=== PATIENT | male | born 1940 | race Caucasian/White ===

== ENCOUNTER 2018-12-06 10:07 | Inpatient (IN) ==
[2018-12-06 11:21] LABS: Basophils % 0.5 % (0.0-0.8); Eosinophils # 0.1 10*3/uL (0.0-0.87); Eosinophils % 1.4 % (0.00-10.9); Hematocrit 41.1 VOL% (42.0-52.0); Hemoglobin 13.7 GM/DL (14.0-18.0); Immature Granulocytes % 0.9 %; Immature Granulocytes Absolute 0.06 #; Lymphocytes # 1.8 10*3/uL (1.4-4.0); Lymphocytes % 26.9 % (21.2-54.2); Mean Corpuscular HGB Conc 33.3 GM/DL (32-36); Mean Corpuscular Volume 89.2 FL (87-102); Mean Platelet Volume 10.1 FL (9.6-12.0); Monocytes % 7.4 % (1.7-12.7); Neutrophils % 62.9 % (38.7-73.9); Platelet Count 197 T/CUMM (130-400); Red Blood Count 4.61 MC/CUMM (3.8-5.5); Red Cell Distribution Width 12.4 % (9.3-17.3); White Blood Count 6.6 T/CUMM (4-12)
[2018-12-06] MEDS ORDERED: ONDANSETRON 4 MG/2 ML VIAL IV PRN (11:31)
[2018-12-06] MEDS ORDERED: ACETAMINOPHEN 325 MG TABLET PO PRN (11:31)
[2018-12-06 11:40] LABS: Albumin 3.5 G/DL (3.4-5.0); Bilirubin,Total 0.6 MG/DL (0.2-1.0); Calcium 8.8 MG/DL (8.5-10.1); Osmolality,Calculated 287.1 MOS/KG (273-304); Total Protein 6.6 G/DL (6.4-8.3)
[2018-12-06] MEDS ORDERED: ceFAZolin 1,000 MG in SYRINGE 1 EACH IV ONE (12:12)
[2018-12-06] MEDS ORDERED: ceFAZolin 1,000 MG VIAL IRRIG ONE (12:12)
[2018-12-06] MEDS ORDERED: diphenhydrAMINE CAP 25 MG CAPSULE PO ONE (12:12)
[2018-12-06] MEDS ORDERED: DIAZEPAM 5 MG TABLET PO ONE (12:12)
[2018-12-06] MEDS ORDERED: TISSUE ADHESIVE 1 EACH APPLICATOR TOP ONE (12:32)
[2018-12-06] MEDS ORDERED: LIDOCAINE 1%/EPI INJ 20 ML VIAL ONE (12:32)
[2018-12-06] MEDS ORDERED: ceFAZolin 1,000 MG VIAL ONE (12:32)
[2018-12-06] MEDS ORDERED: HYDROmorphone 2 MG/1 ML VIAL ONE (12:45)
[2018-12-06] MEDS ORDERED: MIDAZOLAM 2 MG/2 ML VIAL ONE (12:46)
[2018-12-06] MEDS: SODIUM CHLORIDE 0.9% 1,000 ML IV SCH (14:45)
[2018-12-06] MEDS: traMADol 50 MG TABLET PO SCH ×2 (16:25→20:32)
[2018-12-06] MEDS: MELOXICAM 7.5 MG TABLET PO SCH (20:33)
[2018-12-06] MEDS: DOCUSATE SODIUM 100 MG CAPSULE PO SCH (20:33)
[2018-12-06] MEDS ORDERED: LOVASTATIN 60 MG PO SCH (21:00)
[2018-12-07 05:40] LABS: Basophils % 0.5 % (0.0-0.8); Eosinophils # 0.1 10*3/uL (0.0-0.87); Eosinophils % 1.3 % (0.00-10.9); Hematocrit 40.1 VOL% (42.0-52.0); Hemoglobin 13.3 GM/DL (14.0-18.0); Immature Granulocytes % 0.8 %; Immature Granulocytes Absolute 0.06 #; Lymphocytes % 25.5 % (21.2-54.2); Mean Corpuscular HGB Conc 33.2 GM/DL (32-36); Mean Corpuscular Volume 89.5 FL (87-102); Mean Platelet Volume 10.3 FL (9.6-12.0); Monocytes % 8.2 % (1.7-12.7); Neutrophils % 63.7 % (38.7-73.9); Platelet Count 175 T/CUMM (130-400); Red Blood Count 4.48 MC/CUMM (3.8-5.5); Red Cell Distribution Width 12.5 % (9.3-17.3)
[2018-12-07 06:03] LABS: Calcium 8.6 MG/DL (8.5-10.1); Osmolality,Calculated 282.3 MOS/KG (273-304)
[2018-12-07] MEDS: amLODIPine 10 MG TABLET PO SCH (09:57)
[2018-12-07] MEDS: hydroCHLOROthiazide 25 MG TABLET PO SCH (09:57)
[2018-12-07] MEDS: ASPIRIN EC 81 MG TABLET PO SCH (09:57)
[2018-12-07] MEDS: PANTOPRAZOLE 40 MG TABLET PO SCH (09:57)
[2018-12-07] MEDS: DOCUSATE SODIUM 100 MG CAPSULE PO SCH ×2 (09:57→21:41)
[2018-12-07] MEDS: traMADol 50 MG TABLET PO SCH ×3 (09:58→21:42)
[2018-12-07] MEDS: SODIUM CHLORIDE 0.9% 1,000 ML IV SCH (15:20)
[2018-12-07] MEDS: MELOXICAM 7.5 MG TABLET PO SCH (21:42)
[2018-12-08] MEDS: traMADol 50 MG TABLET PO SCH ×3 (09:18→21:26)
[2018-12-08] MEDS: amLODIPine 10 MG TABLET PO SCH (09:19)
[2018-12-08] MEDS: ASPIRIN EC 81 MG TABLET PO SCH (09:19)
[2018-12-08] MEDS: hydroCHLOROthiazide 25 MG TABLET PO SCH (09:19)
[2018-12-08] MEDS: DOCUSATE SODIUM 100 MG CAPSULE PO SCH ×2 (09:19→21:26)
[2018-12-08] MEDS: PANTOPRAZOLE 40 MG TABLET PO SCH (09:19)
[2018-12-08] MEDS: MELOXICAM 7.5 MG TABLET PO SCH (21:27)
[2018-12-08] MEDS: SODIUM CHLORIDE 0.9% 1,000 ML IV SCH (21:29)
[2018-12-09] MEDS: traMADol 50 MG TABLET PO SCH ×3 (08:51→20:26)
[2018-12-09] MEDS: amLODIPine 10 MG TABLET PO SCH (08:51)
[2018-12-09] MEDS: PANTOPRAZOLE 40 MG TABLET PO SCH (08:51)
[2018-12-09] MEDS: hydroCHLOROthiazide 25 MG TABLET PO SCH (08:51)
[2018-12-09] MEDS: ASPIRIN EC 81 MG TABLET PO SCH (08:51)
[2018-12-09] MEDS: DOCUSATE SODIUM 100 MG CAPSULE PO SCH ×2 (08:52→20:26)
[2018-12-09] MEDS: MELOXICAM 7.5 MG TABLET PO SCH (20:26)
[2018-12-10] MEDS: amLODIPine 10 MG TABLET PO SCH (09:34)
[2018-12-10] MEDS: traMADol 50 MG TABLET PO SCH (09:34)
[2018-12-10] MEDS: hydroCHLOROthiazide 25 MG TABLET PO SCH (09:34)
[2018-12-10] MEDS: ASPIRIN EC 81 MG TABLET PO SCH (09:34)
[2018-12-10] MEDS: DOCUSATE SODIUM 100 MG CAPSULE PO SCH (09:34)
[2018-12-10] MEDS: PANTOPRAZOLE 40 MG TABLET PO SCH (09:37)
[2018-12-10 13:20] VITALS: BP 163/71
== END 2018-12-10 11:19 | disposition swing bed (61) | DRG 244 ==
LOC: N.ED 10:07 → N.EDINP 11:31 → N.ICU 12:25 → N.TELES 13:34
PROVIDERS: ADMIT Internal Medicine; ATTEND Internal Medicine

== ENCOUNTER 2019-01-25 08:46 | Inpatient (IN) ==
[~2019-01-25 08:46] MED LIST: ASPIRIN 325 MG TABLET PO ONE; DIAZEPAM 5 MG TABLET PO ONE; MAGNESIUM SULF RIDER 2 GM in PREMIX 1 EACH IV PRN; POTASSIUM CHLORIDE RIDER 10 MEQ in PREMIX 1 EACH IV PRN; diphenhydrAMINE CAP 25 MG CAPSULE PO ONE
[2019-01-25] MEDS: SODIUM CHLORIDE 0.9% 1,000 ML IV SCH (09:25)
[2019-01-25 09:27] LABS: Basophils % 0.6 % (0.0-0.8); Eosinophils # 0.1 10*3/uL (0.0-0.87); Eosinophils % 1.1 % (0.00-10.9); Hematocrit 41.5 VOL% (42.0-52.0); Hemoglobin 14.3 GM/DL (14.0-18.0); Immature Granulocytes % 0.3 %; Immature Granulocytes Absolute 0.02 #; Lymphocytes # 1.6 10*3/uL (1.4-4.0); Lymphocytes % 25.4 % (21.2-54.2); Mean Corpuscular HGB Conc 34.5 GM/DL (32-36); Mean Corpuscular Volume 88.3 FL (87-102); Mean Platelet Volume 10.2 FL (9.6-12.0); Monocytes % 7.9 % (1.7-12.7); Neutrophils % 64.7 % (38.7-73.9); Platelet Count 184 T/CUMM (130-400); Red Cell Distribution Width 12.6 % (9.3-17.3); White Blood Count 6.3 T/CUMM (4-12)
[2019-01-25 09:34] LABS: PT Patient Result 10.7 SECS (9.6-12.2)
[2019-01-25 09:45] LABS: Albumin 3.8 G/DL (3.4-5.0); Bilirubin,Total 0.7 MG/DL (0.2-1.0); Calcium 9.1 MG/DL (8.5-10.1); Osmolality,Calculated 281.4 MOS/KG (273-304); Total Protein 7.5 G/DL (6.4-8.3)
[2019-01-25] MEDS ORDERED: LIDOCAINE 1% 20 ML VIAL ONE (10:17)
[2019-01-25] MEDS ORDERED: HEPARIN/NACL 0.9% 2 UNITS/ML 1,000 ML IV ONE (10:17)
[2019-01-25] MEDS ORDERED: ASPIRIN 325 MG TABLET ONE (10:52)
[2019-01-25] MEDS ORDERED: diphenhydrAMINE CAP 25 MG CAPSULE ONE (10:52)
[2019-01-25] MEDS ORDERED: DIAZEPAM 5 MG TABLET ONE (10:52)
[2019-01-25] MEDS ORDERED: HYDROmorphone 2 MG/1 ML VIAL ONE (12:09)
[2019-01-25] MEDS ORDERED: MIDAZOLAM 2 MG/2 ML VIAL ONE (12:09)
[2019-01-25] MEDS ORDERED: VERAPAMIL 5 MG/2 ML VIAL ONE (12:13)
[2019-01-25] MEDS ORDERED: NITROGLYCERIN DRIP 50 MG/250 ML BOTTLE IV ONE (12:13)
[2019-01-25] MEDS ORDERED: ENOXAPARIN 30 MG/0.3 ML SYRINGE ONE (12:26)
[2019-01-25] MEDS ORDERED: BIVALIRUDIN 250 MG VIAL IV ONE (12:41)
[2019-01-25] MEDS ORDERED: ACETAMINOPHEN/CODEINE 300-30 MG TABLET PO PRN (13:26)
[2019-01-25] MEDS ORDERED: ACETAMINOPHEN 325 MG TABLET PO PRN (13:26)
[2019-01-25] MEDS ORDERED: SODIUM CHLORIDE 0.9% 1,000 ML IV SCH ×2 (13:30→15:00)
[2019-01-25] MEDS ORDERED: CEFUROXIME INJ 1,500 MG in SYRINGE 1 EACH IV ONE (14:35)
[2019-01-25] MEDS ORDERED: GLUCAGON 1 MG VIAL IM PRN (14:35)
[2019-01-25] MEDS ORDERED: DEXTROSE 50% 25 GM/50 ML VIAL IV PRN (14:35)
[2019-01-25] MEDS ORDERED: PAPAVERINE 60 MG/2 ML VIAL ONE (14:58)
[2019-01-25] MEDS ORDERED: VANCOMYCIN 1,000 MG VIAL ONE (14:58)
[2019-01-25 16:05] LABS: ABG HCO3 24.7 MMOL/L (20-26); ABG PCO2 37.7 MM HG (35-48); Allen Test Positive; Pt O2 Delivery Device Room Air
[2019-01-25 16:06] LABS: ABG Base Excess 0.3 MMOL/L (-2.5-2.5); ABG Oxygen Saturation 97.4 % (95-100)
[2019-01-25] MEDS: CHLORHEXIDINE 4% SOLN 118 ML BOTTLE TOP SCH ×2 (18:18→20:48)
[2019-01-25] MEDS ORDERED: ZALEPLON 5 MG CAPSULE PO PRN (20:26)
[2019-01-25] MEDS: CHLORHEXIDINE 0.12% ORAL RINSE 60 ML BOTTLE SWISH/SPIT SCH (20:47)
[2019-01-26 05:00] LABS: Basophils % 0.4 % (0.0-0.8); Eosinophils # 0.1 10*3/uL (0.0-0.87); Eosinophils % 1.8 % (0.00-10.9); Hematocrit 38.2 VOL% (42.0-52.0); Hemoglobin 12.7 GM/DL (14.0-18.0); Immature Granulocytes % 0.4 %; Immature Granulocytes Absolute 0.03 #; Lymphocytes # 1.7 10*3/uL (1.4-4.0); Mean Corpuscular HGB Conc 33.2 GM/DL (32-36); Mean Corpuscular Volume 90.1 FL (87-102); Mean Platelet Volume 10.2 FL (9.6-12.0); Monocytes % 9.2 % (1.7-12.7); Neutrophils % 63.2 % (38.7-73.9); Platelet Count 164 T/CUMM (130-400); Red Blood Count 4.24 MC/CUMM (3.8-5.5); Red Cell Distribution Width 12.7 % (9.3-17.3); White Blood Count 6.8 T/CUMM (4-12)
[2019-01-26 05:26] LABS: Blood Urea Nitrogen 23 MG/DL (7-18); Calcium 8.5 MG/DL (8.5-10.1); Estimated Glom Filtration Rate 85 ML/MIN; Glucose 114 MG/DL (74-106); HDL Cholesterol 34 MG/DL (40-60); Osmolality,Calculated 285.3 MOS/KG (273-304); Risk Ratio 5.29; Triglycerides 293 MG/DL (2-150); VLDL CHOLESTEROL 58.6 MG/DL
[2019-01-26 05:29] LABS: Troponin I 0.623 NG/ML (0.00-0.045)
[2019-01-26] MEDS ORDERED: CEFUROXIME INJ 1,500 MG in SYRINGE 1 EACH IV ONE (05:30)
[2019-01-26] MEDS ORDERED: DIAZEPAM 5 MG TABLET PO ONE (06:00)
[2019-01-26] MEDS ORDERED: FAMOTIDINE 20 MG TABLET PO ONE (06:00)
[2019-01-26] MEDS ORDERED: MIDAZOLAM 10 MG/2 ML VIAL ONE (06:01)
[2019-01-26] MEDS ORDERED: SUFentanil 250 MCG/5 ML AMP ONE (06:01)
[2019-01-26] MEDS ORDERED: ePHEDrine 50 MG/ML AMP ONE (06:46)
[2019-01-26] MEDS: SODIUM CHLORIDE 0.9% 1,000 ML IV SCH (07:00)
[2019-01-26 07:41] LABS: ABG HCO3 23.6 MMOL/L (20-26); ABG Oxygen Saturation 99.8 % (95-100); ABG PCO2 38.3 MM HG (35-48); ABG PH 7.397 (7.35-7.45); ABG TCO2 20.6 MMOL/L (23-27); Glucose Heart Surgery 120 MG/DL (74-106); Ionized Calcium Arterial 1.18 MMOL/L (1.21-1.46); PCO2 Patient Temp Arterial 38.3 MMHG; PH Patient Temp Arterial 7.397; Patient Temperature 37 CELCIUS; Potassium Heart/CVR 3.8 MMOL/L (3.5-5.1); Sodium Heart/CVR 139 MMOL/L (135-145)
[2019-01-26 08:04] LABS: Apearance,Urine CLEAR (Clear); Bilirubin,Urine Negative (Negative); Blood, Urine Negative (Negative); Glucose,Urine (UA) Negative (Negative); Ketones,Urine Negative (Negative); Mucus,Urine Occasional /LPF (Occasional); Nitrite,Urine Negative (Negative); Protein,Urine Negative; RBC,Urine 1 /HPF (0-4); Urine Color Straw (Yellow); Urine Urobilinogen < 2.0 EU/DL (0.2-1.0)
[2019-01-26] MEDS ORDERED: PHENYLEPHRINE DRIP 40 MG/250 ML PREMIX IV ONE (08:12)
[2019-01-26] MEDS ORDERED: SODIUM BICARBONATE 50 MEQ/50 ML VIAL IV ONE ×2 (08:12→09:49)
[2019-01-26] MEDS ORDERED: NITROPRUSSIDE 50 MG/2 ML VIAL ONE (08:12)
[2019-01-26] MEDS ORDERED: CALCIUM CHLORIDE 1,000 MG/10 ML SYRINGE IV ONE (08:13)
[2019-01-26] MEDS ORDERED: POTASSIUM CHLORIDE RIDER 100 ML IV ONE (08:13)
[2019-01-26] MEDS ORDERED: NITROGLYCERIN DRIP 50 MG/250 ML BOTTLE IV ONE (08:54)
[2019-01-26] MEDS ORDERED: HEPARIN/NACL 0.9% 2 UNITS/ML 500 ML IV ONE (08:54)
[2019-01-26] MEDS ORDERED: AMINOCAPROIC ACID 5,000 MG/20 ML VIAL ONE (08:54)
[2019-01-26] MEDS ORDERED: PHENYLEPHRINE DRIP 20 MG/250 ML PREMIX IV ONE (08:54)
[2019-01-26] MEDS ORDERED: CALCIUM CHLORIDE 1,000 MG/10 ML VIAL IV ONE (08:54)
[2019-01-26] MEDS ORDERED: ASPIRIN EC 81 MG TABLET PO SCH (09:00)
[2019-01-26] MEDS: CHLORHEXIDINE 0.12% ORAL RINSE 60 ML BOTTLE SWISH/SPIT SCH ×2 (09:00→20:55)
[2019-01-26 09:02] LABS: Hematocrit Heart Surgery 28.9 PERCENT (42-52); Hemoglobin Heart Surgery 9.3 G/DL (14.0-18.0); PCO2 Patient Temp Venous 39.6 MM HG; PH Patient Temp Venous 7.39; PO2 Patient Temp Venous 39.3 MM HG; Potassium Heart/CVR 4.2 MMOL/L (3.5-5.1); VBG Base Excess -0.8 MEQ/L (0-4); VBG HCO3 23.4 MEQ/L (24-28); VBG Oxygen Saturation 79.1 %; VBG PCO2 41.5 MMHG (41-51); VBG PH 7.376; VBG PO2 42.2 MMHG (17-40)
[2019-01-26] MEDS ORDERED: PHENYLEPHRINE 1 MG/10 ML SYRINGE IV ONE (09:03)
[2019-01-26 09:43] LABS: ABG Base Excess -1.9 MMOL/L (-2.5-2.5); ABG HCO3 22.9 MMOL/L (20-26); ABG Oxygen Saturation 99.7 % (95-100); ABG PCO2 41.7 MM HG (35-48); ABG PH 7.359 (7.35-7.45); ABG TCO2 21.3 MMOL/L (23-27); Glucose Heart Surgery 196 MG/DL (74-106); Hematocrit Heart Surgery 32.9 PERCENT (42-52); Hemoglobin Heart Surgery 10.6 G/DL (14.0-18.0); Ionized Calcium Arterial 1.26 MMOL/L (1.21-1.46); PCO2 Patient Temp Arterial 41.7 MMHG; PH Patient Temp Arterial 7.359; Patient Temperature 37 CELCIUS; Potassium Heart/CVR 3.9 MMOL/L (3.5-5.1); Sodium Heart/CVR 134 MMOL/L (135-145)
[2019-01-26] MEDS ORDERED: ALBUMIN 25% 25 GM/100 ML VIAL IV ONE (09:49)
[2019-01-26] MEDS ORDERED: PROTAMINE SULFATE 250 MG/25 ML VIAL IV ONE (09:49)
[2019-01-26] MEDS ORDERED: MANNITOL 100 GM/500 ML BAG IV ONE (09:49)
[2019-01-26] MEDS ORDERED: DEXTROSE 5% KCL 20 MEQ 20 MEQ/1,000 ML BAG IV ONE (09:49)
[2019-01-26] MEDS ORDERED: MAGNESIUM SULFATE 5 GM/10 ML VIAL IV ONE (09:49)
[2019-01-26] MEDS ORDERED: LIDOCAINE 100 MG/5 ML SYRINGE ONE (09:49)
[2019-01-26] MEDS ORDERED: HEPARIN 10,000 UNIT/10 ML VIAL ONE (09:50)
[2019-01-26] MEDS ORDERED: PROTAMINE SULFATE 50 MG/5 ML VIAL IV ONE (09:50)
[2019-01-26] MEDS ORDERED: methylPREDNISolone SOD SUC 1,000 MG/8 ML VIAL ONE (09:50)
[2019-01-26] MEDS ORDERED: FUROSEMIDE 20 MG/2 ML VIAL ONE (09:50)
[2019-01-26] MEDS ORDERED: SEVOFLURANE 1 UNIT/15 MINUTE INH ONE (10:34)
[2019-01-26] MEDS ORDERED: SODIUM CHLORIDE 0.9% 250 ML IV ONE (10:34)
[2019-01-26] MEDS ORDERED: SODIUM CHLORIDE 0.9% 100 ML IV ONE (10:34)
[2019-01-26] MEDS ORDERED: LIDOCAINE 1% 5 ML VIAL ONE (10:34)
[2019-01-26] MEDS ORDERED: MINERAL OIL/PETROLATUM OPH OINT 3.5 GM TUBE ONE (10:34)
[2019-01-26] MEDS ORDERED: VECURONIUM 10 MG VIAL IV ONE (10:34)
[2019-01-26] MEDS ORDERED: SODIUM CHLORIDE 0.9% 1,000 ML IV ONE (10:34)
[2019-01-26] MEDS ORDERED: ETOMIDATE 40 MG/20 ML VIAL IV ONE (10:34)
[2019-01-26] MEDS ORDERED: LACTATED RINGERS 1,000 ML IV ONE (10:34)
[2019-01-26] MEDS ORDERED: MAGNESIUM SULF RIDER 4 GM in PREMIX 1 EACH IV PRN (10:39)
[2019-01-26] MEDS ORDERED: POTASSIUM CHLORIDE RIDER 10 MEQ in PREMIX 1 EACH IV PRN (10:39)
[2019-01-26] MEDS ORDERED: MIDAZOLAM 10 MG/2 ML VIAL IV PRN (10:39)
[2019-01-26] MEDS ORDERED: INSULIN REGULAR 100 UNIT/ML IV PRN (10:39)
[2019-01-26] MEDS ORDERED: MIDAZOLAM 2 MG/2 ML VIAL IV PRN (10:39)
[2019-01-26] MEDS ORDERED: PHENYLEPHRINE DRIP 40 MG/250 ML PREMIX IV PRN (10:39)
[2019-01-26] MEDS ORDERED: INSULIN REGULAR DRIP 100 ML IV SCH (10:39)
[2019-01-26] MEDS ORDERED: VECURONIUM 10 MG VIAL IV PRN ×2 (10:39)
[2019-01-26] MEDS ORDERED: ACETAMINOPHEN 650 MG SUPP RECTAL PRN (10:39)
[2019-01-26] MEDS ORDERED: CALCIUM CHLORIDE 1,000 MG/10 ML SYRINGE IV PRN (10:39)
[2019-01-26] MEDS ORDERED: SODIUM CHLORIDE 0.45% 1,000 ML IV SCH ×2 (10:39)
[2019-01-26] MEDS ORDERED: ONDANSETRON 4 MG/2 ML VIAL IV PRN (10:39)
[2019-01-26] MEDS ORDERED: MAGNESIUM SULF RIDER 2 GM in PREMIX 1 EACH IV PRN (10:39)
[2019-01-26] MEDS ORDERED: NITROPRUSSIDE 100 MG in DEXTROSE 5% 250 ML IV PRN (10:39)
[2019-01-26] MEDS ORDERED: DEXTROSE 50% 25 GM/50 ML VIAL IV PRN ×2 (10:39)
[2019-01-26] MEDS ORDERED: INSULIN REGULAR 100 UNIT/ML IV ONE (10:39)
[2019-01-26 10:43] LABS: ABG Base Excess -2.1 MMOL/L (-2.5-2.5); ABG HCO3 22.7 MMOL/L (20-26); ABG Oxygen Saturation 99.3 % (95-100); ABG PCO2 41.6 MM HG (35-48); ABG PH 7.356 (7.35-7.45); ABG TCO2 20.8 MMOL/L (23-27); Glucose Heart Surgery 168 MG/DL (74-106); Hematocrit Heart Surgery 35.7 PERCENT (42-52); Hemoglobin Heart Surgery 11.6 G/DL (14.0-18.0); Potassium Heart/CVR 3.7 MMOL/L (3.5-5.1)
[2019-01-26] MEDS: POTASSIUM CHLORIDE RIDER 20 MEQ in PREMIX 1 EACH IV PRN ×8 (10:45→21:11)
[2019-01-26 10:47] LABS: Basophils % 0.4 % (0.0-0.8); Eosinophils # 0.1 10*3/uL (0.0-0.87); Hematocrit 33.6 VOL% (42.0-52.0); Hemoglobin 11.4 GM/DL (14.0-18.0); Immature Granulocytes % 1.3 %; Immature Granulocytes Absolute 0.12 #; Lymphocytes # 1.2 10*3/uL (1.4-4.0); Mean Corpuscular HGB Conc 33.9 GM/DL (32-36); Mean Corpuscular Volume 89.8 FL (87-102); Mean Platelet Volume 10.3 FL (9.6-12.0); Monocytes % 4.4 % (1.7-12.7); Neutrophils % 79.9 % (38.7-73.9); Platelet Count 145 T/CUMM (130-400); Red Blood Count 3.74 MC/CUMM (3.8-5.5); Red Cell Distribution Width 12.7 % (9.3-17.3); White Blood Count 9.5 T/CUMM (4-12)
[2019-01-26 10:57] LABS: INR 1.1; PT Patient Result 11.6 SECS (9.6-12.2); Partial Thromboplastin Time 28.1 SECS (20.8-36.0)
[2019-01-26 10:59] LABS: CKMB % 5.4 %
[2019-01-26 11:01] LABS: Troponin I 1.49 NG/ML (0.00-0.045)
[2019-01-26 11:10] LABS: Albumin 3.2 G/DL (3.4-5.0); Bilirubin,Total 0.9 MG/DL (0.2-1.0); Calcium 8.5 MG/DL (8.5-10.1); Osmolality,Calculated 284.4 MOS/KG (273-304); Total Protein 5.9 G/DL (6.4-8.3)
[2019-01-26] MEDS: CHLORHEXIDINE 4% SOLN 118 ML BOTTLE TOP SCH (11:30)
[2019-01-26] MEDS: KETOROLAC 30 MG/1 ML VIAL IV SCH ×3 (11:34→22:53)
[2019-01-26 12:06] LABS: ABG Base Excess -2.4 MMOL/L (-2.5-2.5); ABG HCO3 22.4 MMOL/L (20-26); ABG Oxygen Saturation 96.7 % (95-100); ABG PCO2 42.7 MM HG (35-48); ABG PH 7.346 (7.35-7.45); ABG PO2 84.9 MM HG (80-95); ABG TCO2 20.7 MMOL/L (23-27); Glucose Heart Surgery 144 MG/DL (74-106); Hematocrit Heart Surgery 38.2 PERCENT (42-52); Hemoglobin Heart Surgery 12.4 G/DL (14.0-18.0); Potassium Heart/CVR 4.1 MMOL/L (3.5-5.1)
[2019-01-26] MEDS: ALBUMIN 5% 12.5 GM in PREMIX 1 EACH IV PRN ×2 (12:10→12:25)
[2019-01-26] MEDS: LACTATED RINGERS 250 ML IV PRN ×2 (12:35→12:50)
[2019-01-26 14:01] LABS: ABG Base Excess -1.4 MMOL/L (-2.5-2.5); ABG HCO3 23.2 MMOL/L (20-26); ABG Oxygen Saturation 98.6 % (95-100); ABG PCO2 37.2 MM HG (35-48); ABG PH 7.399 (7.35-7.45); ABG TCO2 20.5 MMOL/L (23-27); Glucose Heart Surgery 167 MG/DL (74-106); Hematocrit Heart Surgery 35.8 PERCENT (42-52); Hemoglobin Heart Surgery 11.6 G/DL (14.0-18.0)
[2019-01-26] MEDS: MORPHINE 4 MG/1 ML VIAL IV PRN ×2 (14:24→19:06)
[2019-01-26 15:10] LABS: ABG Base Excess -3.2 MMOL/L (-2.5-2.5); ABG HCO3 21.5 MMOL/L (20-26); ABG Oxygen Saturation 97.3 % (95-100); ABG PCO2 37.4 MM HG (35-48); ABG PH 7.377 (7.35-7.45); ABG PO2 101.7 MM HG (80-95); ABG TCO2 22.6 MMOL/L (23-27); Glucose Heart Surgery 167 MG/DL (74-106); Hemoglobin Heart Surgery 12.2 G/DL (14.0-18.0); Potassium Heart/CVR 3.8 MMOL/L (3.5-5.1)
[2019-01-26 16:07] LABS: ABG Base Excess -2.8 MMOL/L (-2.5-2.5); ABG HCO3 22.1 MMOL/L (20-26); ABG Oxygen Saturation 97.9 % (95-100); ABG PCO2 34.7 MM HG (35-48); ABG PH 7.399 (7.35-7.45); ABG PO2 94.1 MM HG (80-95); ABG TCO2 19.1 MMOL/L (23-27); Glucose Heart Surgery 171 MG/DL (74-106); Hematocrit Heart Surgery 35.8 PERCENT (42-52); Hemoglobin Heart Surgery 11.6 G/DL (14.0-18.0)
[2019-01-26 17:39] LABS: ABG Base Excess -3.6 MMOL/L (-2.5-2.5); ABG HCO3 21.2 MMOL/L (20-26); ABG Oxygen Saturation 95.9 % (95-100); ABG PCO2 37.5 MM HG (35-48); ABG TCO2 22.3 MMOL/L (23-27); Glucose Heart Surgery 137 MG/DL (74-106); Hemoglobin Heart Surgery 12.3 G/DL (14.0-18.0); Potassium Heart/CVR 3.8 MMOL/L (3.5-5.1)
[2019-01-26] MEDS: CEFUROXIME INJ 1,500 MG in SYRINGE 1 EACH IV SCH (17:55)
[2019-01-26 18:29] LABS: ABG Base Excess -3.6 MMOL/L (-2.5-2.5); ABG HCO3 21.4 MMOL/L (20-26); ABG Oxygen Saturation 97.6 % (95-100); ABG PCO2 36.4 MM HG (35-48); ABG PH 7.372 (7.35-7.45); ABG PO2 92.2 MM HG (80-95); ABG TCO2 18.8 MMOL/L (23-27); Glucose Heart Surgery 139 MG/DL (74-106); Hematocrit Heart Surgery 36.4 PERCENT (42-52); Hemoglobin Heart Surgery 11.8 G/DL (14.0-18.0); Potassium Heart/CVR 3.8 MMOL/L (3.5-5.1)
[2019-01-26] MEDS ORDERED: FUROSEMIDE 40 MG/4 ML VIAL ONE (18:32)
[2019-01-26] MEDS: FUROSEMIDE 40 MG/4 ML VIAL IV PRN (18:34)
[2019-01-26 18:48] LABS: CKMB % 4.1 %
[2019-01-26 18:49] LABS: Troponin I 2.26 NG/ML (0.00-0.045)
[2019-01-26] MEDS: MORPHINE 10 MG/1 ML VIAL IV PRN ×2 (20:52→23:42)
[2019-01-26 21:00] LABS: ABG Base Excess -1.4 MMOL/L (-2.5-2.5); ABG HCO3 23.2 MMOL/L (20-26); ABG Oxygen Saturation 95.6 % (95-100); ABG PCO2 37.6 MM HG (35-48); ABG PH 7.397 (7.35-7.45); ABG PO2 71.1 MM HG (80-95); ABG TCO2 20.5 MMOL/L (23-27); Glucose Heart Surgery 106 MG/DL (74-106); Hematocrit Heart Surgery 36.3 PERCENT (42-52); Hemoglobin Heart Surgery 11.8 G/DL (14.0-18.0)
[2019-01-27] MEDS: FUROSEMIDE 40 MG/4 ML VIAL IV PRN (02:09)
[2019-01-27] MEDS: MORPHINE 10 MG/1 ML VIAL IV PRN ×3 (02:41→08:19)
[2019-01-27 03:29] LABS: ABG Base Excess -1.4 MMOL/L (-2.5-2.5); ABG HCO3 23.2 MMOL/L (20-26); ABG Oxygen Saturation 93.8 % (95-100); ABG PCO2 38.7 MM HG (35-48); ABG PH 7.388 (7.35-7.45); ABG PO2 66.7 MM HG (80-95); ABG TCO2 20.8 MMOL/L (23-27); Glucose Heart Surgery 160 MG/DL (74-106); Hematocrit Heart Surgery 35.5 PERCENT (42-52); Hemoglobin Heart Surgery 11.5 G/DL (14.0-18.0); Potassium Heart/CVR 4.1 MMOL/L (3.5-5.1)
[2019-01-27 03:38] LABS: Basophils % 0.2 % (0.0-0.8); Hematocrit 33.6 VOL% (42.0-52.0); Hemoglobin 11.4 GM/DL (14.0-18.0); Immature Granulocytes % 0.7 %; Immature Granulocytes Absolute 0.11 #; Lymphocytes # 0.6 10*3/uL (1.4-4.0); Lymphocytes % 3.9 % (21.2-54.2); Mean Corpuscular HGB Conc 33.9 GM/DL (32-36); Mean Corpuscular Volume 90.8 FL (87-102); Mean Platelet Volume 10.8 FL (9.6-12.0); Monocytes % 3.3 % (1.7-12.7); Neutrophils % 91.9 % (38.7-73.9); Platelet Count 154 T/CUMM (130-400); Red Cell Distribution Width 13.1 % (9.3-17.3); White Blood Count 15.3 T/CUMM (4-12)
[2019-01-27] MEDS: POTASSIUM CHLORIDE RIDER 20 MEQ in PREMIX 1 EACH IV PRN ×2 (03:39→05:30)
[2019-01-27 03:54] LABS: Albumin 3.6 G/DL (3.4-5.0); Bilirubin,Direct 0.15 MG/DL (0.0-0.20); Bilirubin,Total 0.7 MG/DL (0.2-1.0); Osmolality,Calculated 289.1 MOS/KG (273-304); Total Protein 6.3 G/DL (6.4-8.3)
[2019-01-27 03:56] LABS: CKMB % 2.2 %
[2019-01-27 04:07] LABS: Band Neutrophils 1 % (0-10); Lymphocytes 5 % (20-55); Segmented Neutrophils 89 % (50-85); Total Cells Counted 100; Troponin I 2.49 NG/ML (0.00-0.045)
[2019-01-27 04:08] LABS: Hypochromasia Slight; Platelet Estimate Adequate
[2019-01-27] MEDS: KETOROLAC 30 MG/1 ML VIAL IV SCH ×4 (04:40→22:15)
[2019-01-27] MEDS: CEFUROXIME INJ 1,500 MG in SYRINGE 1 EACH IV SCH (06:09)
[2019-01-27] MEDS ORDERED: INSULIN REGULAR 100 UNIT/ML SUBCUT SCH (07:00)
[2019-01-27] MEDS: CHLORHEXIDINE 0.12% ORAL RINSE 60 ML BOTTLE SWISH/SPIT SCH ×3 (09:50→21:38)
[2019-01-27] MEDS ORDERED: ACETAMINOPHEN 325 MG TABLET PO PRN (10:15)
[2019-01-27] MEDS ORDERED: GLUCAGON 1 MG VIAL IM PRN ×2 (10:15)
[2019-01-27] MEDS ORDERED: MAGNESIUM SULF RIDER 4 GM in PREMIX 1 EACH IV PRN (10:15)
[2019-01-27] MEDS ORDERED: NITROGLYCERIN SL 0.4 MG TABLET SL PRN (10:15)
[2019-01-27] MEDS ORDERED: SODIUM CHLOR 0.45% KCL 20 MEQ 20 MEQ/1,000 ML BAG IV SCH (10:15)
[2019-01-27] MEDS ORDERED: COENZYME Q10 10 MG PO SCH (10:15)
[2019-01-27] MEDS ORDERED: DEXTROSE 50% 25 GM/50 ML VIAL IV PRN ×2 (10:15)
[2019-01-27] MEDS ORDERED: POTASSIUM CHLORIDE 20 MEQ TABLET PO PRN (10:15)
[2019-01-27] MEDS ORDERED: MAGNESIUM SULF RIDER 2 GM in PREMIX 1 EACH IV PRN (10:15)
[2019-01-27] MEDS ORDERED: traMADol 50 MG TABLET PO PRN (10:15)
[2019-01-27] MEDS ORDERED: ALUMINUM/MAGNES/SIMETH MAX STR 30 ML UDCUP PO PRN (10:15)
[2019-01-27] MEDS ORDERED: ONDANSETRON 4 MG/2 ML VIAL IV PRN (10:15)
[2019-01-27] MEDS: ASPIRIN EC 81 MG TABLET PO SCH (10:57)
[2019-01-27] MEDS: DOCUSATE SODIUM 100 MG CAPSULE PO SCH (10:57)
[2019-01-27] MEDS: OMEGA 3 ACID ETHYL ESTERS 1 GM CAPSULE PO SCH (10:57)
[2019-01-27] MEDS: FERROUS SULFATE 325 MG TABLET PO SCH (10:57)
[2019-01-27] MEDS: CYANOCOBALAMIN 500 MCG TABLET PO SCH (10:57)
[2019-01-27] MEDS: CHOLECALCIFEROL 1,000 UNIT TABLET PO SCH (10:58)
[2019-01-27] MEDS: SIMVASTATIN 10 MG TABLET PO SCH (10:58)
[2019-01-27] MEDS: PANTOPRAZOLE 40 MG TABLET PO SCH (10:58)
[2019-01-27] MEDS: ISOSORBIDE MONONITRATE 30 MG TABLET PO SCH (10:58)
[2019-01-27] MEDS: LOSARTAN 50 MG TABLET PO SCH (10:58)
[2019-01-27] MEDS ORDERED: HYDROmorphone 2 MG/1 ML VIAL IV ONE (19:52)
[2019-01-27] MEDS: MELOXICAM 7.5 MG TABLET PO SCH (21:35)
[2019-01-27] MEDS: SIMVASTATIN 20 MG TABLET PO SCH (21:38)
[2019-01-27] MEDS: ZALEPLON 5 MG CAPSULE PO PRN (21:38)
[2019-01-28] MEDS: oxyCODONE/ACETAMINOPHEN 5-325 MG TABLET PO PRN ×5 (00:01→21:01)
[2019-01-28] MEDS: KETOROLAC 30 MG/1 ML VIAL IV SCH ×4 (03:30→22:33)
[2019-01-28 05:40] LABS: Basophils % 0.1 % (0.0-0.8); Eosinophils % 0.1 % (0.00-10.9); Hematocrit 32.2 VOL% (42.0-52.0); Hemoglobin 10.3 GM/DL (14.0-18.0); Immature Granulocytes % 0.8 %; Immature Granulocytes Absolute 0.11 #; Lymphocytes # 1.3 10*3/uL (1.4-4.0); Lymphocytes % 9.2 % (21.2-54.2); Mean Corpuscular Volume 94.4 FL (87-102); Mean Platelet Volume 11.1 FL (9.6-12.0); Monocytes % 8.1 % (1.7-12.7); Neutrophils % 81.7 % (38.7-73.9); Platelet Count 135 T/CUMM (130-400); Red Blood Count 3.41 MC/CUMM (3.8-5.5); Red Cell Distribution Width 13.7 % (9.3-17.3); White Blood Count 14.2 T/CUMM (4-12)
[2019-01-28] MEDS ORDERED: FUROSEMIDE 40 MG/4 ML VIAL IV ONE (06:00)
[2019-01-28 06:04] LABS: Alanine Aminotransferase 22 U/L (16-61); Albumin 3.2 G/DL (3.4-5.0); Alkaline Phosphatase 47 U/L (45-117); Aspartate Amino Transferase 27 U/L (0-37); Bilirubin,Indirect 0.9 MG/DL (0.0-1.0); Blood Urea Nitrogen 35 MG/DL (7-18); Calcium 7.9 MG/DL (8.5-10.1); Estimated Glom Filtration Rate 77 ML/MIN; Glucose 133 MG/DL (74-106); Osmolality,Calculated 290.3 MOS/KG (273-304); Total Protein 6.2 G/DL (6.4-8.3)
[2019-01-28] MEDS: DOCUSATE SODIUM 100 MG CAPSULE PO SCH (10:24)
[2019-01-28] MEDS: CYANOCOBALAMIN 500 MCG TABLET PO SCH (10:24)
[2019-01-28] MEDS: OMEGA 3 ACID ETHYL ESTERS 1 GM CAPSULE PO SCH (10:25)
[2019-01-28] MEDS: CHLORHEXIDINE 0.12% ORAL RINSE 60 ML BOTTLE SWISH/SPIT SCH ×2 (10:25→21:04)
[2019-01-28] MEDS: CHOLECALCIFEROL 1,000 UNIT TABLET PO SCH (10:25)
[2019-01-28] MEDS: SIMVASTATIN 10 MG TABLET PO SCH (10:25)
[2019-01-28] MEDS: ISOSORBIDE MONONITRATE 30 MG TABLET PO SCH (10:25)
[2019-01-28] MEDS: ASPIRIN EC 81 MG TABLET PO SCH (10:25)
[2019-01-28] MEDS: PANTOPRAZOLE 40 MG TABLET PO SCH (10:25)
[2019-01-28] MEDS: LOSARTAN 50 MG TABLET PO SCH (10:25)
[2019-01-28] MEDS: FERROUS SULFATE 325 MG TABLET PO SCH (10:26)
[2019-01-28] MEDS: MAGNESIUM HYDROXIDE SUSP 30 ML UDCUP PO PRN ×2 (10:36→21:02)
[2019-01-28] MEDS: carvediloL 3.125 MG TABLET PO SCH ×2 (12:09→21:01)
[2019-01-28] MEDS: POLYETHYLENE GLYCOL POWDER 17 GM PACK PO SCH (12:10)
[2019-01-28] MEDS: HYDROmorphone 2 MG/1 ML VIAL IV PRN (14:30)
[2019-01-28] MEDS: MELOXICAM 7.5 MG TABLET PO SCH (21:00)
[2019-01-28] MEDS: SIMVASTATIN 20 MG TABLET PO SCH (21:01)
[2019-01-29] MEDS: oxyCODONE/ACETAMINOPHEN 5-325 MG TABLET PO PRN ×3 (00:27→19:23)
[2019-01-29] MEDS: ZALEPLON 5 MG CAPSULE PO PRN ×2 (00:28→21:31)
[2019-01-29] MEDS: KETOROLAC 30 MG/1 ML VIAL IV SCH ×4 (04:18→21:55)
[2019-01-29 04:48] LABS: Basophils % 0.4 % (0.0-0.8); Eosinophils # 0.2 10*3/uL (0.0-0.87); Eosinophils % 1.5 % (0.00-10.9); Hematocrit 30.4 VOL% (42.0-52.0); Hemoglobin 9.9 GM/DL (14.0-18.0); Immature Granulocytes % 0.9 %; Immature Granulocytes Absolute 0.09 #; Lymphocytes # 1.4 10*3/uL (1.4-4.0); Lymphocytes % 14.5 % (21.2-54.2); Mean Corpuscular HGB Conc 32.6 GM/DL (32-36); Mean Corpuscular Volume 93.8 FL (87-102); Mean Platelet Volume 11.2 FL (9.6-12.0); Monocytes % 9.5 % (1.7-12.7); Neutrophils % 73.2 % (38.7-73.9); Platelet Count 130 T/CUMM (130-400); Red Blood Count 3.24 MC/CUMM (3.8-5.5); Red Cell Distribution Width 13.4 % (9.3-17.3); White Blood Count 9.9 T/CUMM (4-12)
[2019-01-29 05:18] LABS: Alanine Aminotransferase 29 U/L (16-61); Albumin 3.1 G/DL (3.4-5.0); Alkaline Phosphatase 50 U/L (45-117); Aspartate Amino Transferase 26 U/L (0-37); Bilirubin,Indirect 0.7 MG/DL (0.0-1.0); Blood Urea Nitrogen 39 MG/DL (7-18); Calcium 7.9 MG/DL (8.5-10.1); Estimated Glom Filtration Rate 86 ML/MIN; Glucose 105 MG/DL (74-106); Osmolality,Calculated 283.7 MOS/KG (273-304); Total Protein 6.3 G/DL (6.4-8.3)
[2019-01-29 05:24] LABS: Troponin I 0.552 NG/ML (0.00-0.045)
[2019-01-29] MEDS: CYANOCOBALAMIN 500 MCG TABLET PO SCH (08:46)
[2019-01-29] MEDS: carvediloL 3.125 MG TABLET PO SCH (08:46)
[2019-01-29] MEDS: POLYETHYLENE GLYCOL POWDER 17 GM PACK PO SCH (08:46)
[2019-01-29] MEDS: LOSARTAN 50 MG TABLET PO SCH (08:46)
[2019-01-29] MEDS: ASPIRIN EC 81 MG TABLET PO SCH (08:46)
[2019-01-29] MEDS: CHOLECALCIFEROL 1,000 UNIT TABLET PO SCH (08:46)
[2019-01-29] MEDS: PANTOPRAZOLE 40 MG TABLET PO SCH (08:46)
[2019-01-29] MEDS: OMEGA 3 ACID ETHYL ESTERS 1 GM CAPSULE PO SCH (08:46)
[2019-01-29] MEDS: CHLORHEXIDINE 0.12% ORAL RINSE 60 ML BOTTLE SWISH/SPIT SCH ×2 (08:49→21:55)
[2019-01-29] MEDS: DOCUSATE SODIUM 100 MG CAPSULE PO SCH (08:49)
[2019-01-29] MEDS: FERROUS SULFATE 325 MG TABLET PO SCH (08:49)
[2019-01-29] MEDS: SIMVASTATIN 10 MG TABLET PO SCH (08:49)
[2019-01-29] MEDS ORDERED: FUROSEMIDE 40 MG/4 ML VIAL IV ONE (14:35)
[2019-01-29] MEDS ORDERED: POTASSIUM CHLORIDE 20 MEQ TABLET PO ONE (14:35)
[2019-01-29] MEDS: carvediloL 6.25 MG TABLET PO SCH (17:33)
[2019-01-29] MEDS: SIMVASTATIN 20 MG TABLET PO SCH (21:30)
[2019-01-29] MEDS: ASCORBIC ACID 500 MG TABLET PO SCH (21:30)
[2019-01-29] MEDS: MAGNESIUM CHLORIDE 64 MG TABLET PO SCH (21:31)
[2019-01-29] MEDS: MELOXICAM 7.5 MG TABLET PO SCH (22:00)
[2019-01-30] MEDS: KETOROLAC 30 MG/1 ML VIAL IV SCH (04:13)
[2019-01-30] MEDS: oxyCODONE/ACETAMINOPHEN 5-325 MG TABLET PO PRN ×4 (06:35→23:56)
[2019-01-30] MEDS: DOCUSATE SODIUM 100 MG CAPSULE PO SCH (09:28)
[2019-01-30] MEDS: FERROUS SULFATE 325 MG TABLET PO SCH (09:28)
[2019-01-30] MEDS: CHOLECALCIFEROL 1,000 UNIT TABLET PO SCH (09:28)
[2019-01-30] MEDS: LOSARTAN 50 MG TABLET PO SCH (09:28)
[2019-01-30] MEDS: SIMVASTATIN 10 MG TABLET PO SCH (09:28)
[2019-01-30] MEDS: PANTOPRAZOLE 40 MG TABLET PO SCH (09:28)
[2019-01-30] MEDS: ASCORBIC ACID 500 MG TABLET PO SCH ×2 (09:28→20:24)
[2019-01-30] MEDS: carvediloL 6.25 MG TABLET PO SCH (09:29)
[2019-01-30] MEDS: OMEGA 3 ACID ETHYL ESTERS 1 GM CAPSULE PO SCH (09:29)
[2019-01-30] MEDS: ASPIRIN EC 81 MG TABLET PO SCH (09:29)
[2019-01-30] MEDS: MAGNESIUM CHLORIDE 64 MG TABLET PO SCH ×2 (09:29→20:24)
[2019-01-30] MEDS: POLYETHYLENE GLYCOL POWDER 17 GM PACK PO SCH (09:30)
[2019-01-30] MEDS: CHLORHEXIDINE 0.12% ORAL RINSE 60 ML BOTTLE SWISH/SPIT SCH ×2 (09:30→20:23)
[2019-01-30] MEDS: CYANOCOBALAMIN 500 MCG TABLET PO SCH (10:06)
[2019-01-30] MEDS ORDERED: carvediloL 3.125 MG TABLET PO ONE (10:18)
[2019-01-30] MEDS ORDERED: LOSARTAN 25 MG TABLET PO ONE (11:26)
[2019-01-30] MEDS: carvediloL 12.5 MG TABLET PO SCH ×2 (11:37→17:50)
[2019-01-30] MEDS: HYDROmorphone 2 MG/1 ML VIAL IV PRN (20:23)
[2019-01-30] MEDS: SIMVASTATIN 20 MG TABLET PO SCH (20:24)
[2019-01-30] MEDS: MELOXICAM 7.5 MG TABLET PO SCH (20:24)
[2019-01-31 04:29] LABS: Basophils % 0.3 % (0.0-0.8); Eosinophils # 0.3 10*3/uL (0.0-0.87); Eosinophils % 3.3 % (0.00-10.9); Hematocrit 31.3 VOL% (42.0-52.0); Hemoglobin 10.2 GM/DL (14.0-18.0); Immature Granulocytes % 1.9 %; Immature Granulocytes Absolute 0.14 #; Lymphocytes # 1.6 10*3/uL (1.4-4.0); Lymphocytes % 20.9 % (21.2-54.2); Mean Corpuscular HGB Conc 32.6 GM/DL (32-36); Mean Corpuscular Volume 92.6 FL (87-102); Mean Platelet Volume 11.1 FL (9.6-12.0); Monocytes % 11.7 % (1.7-12.7); Neutrophils % 61.9 % (38.7-73.9); Platelet Count 181 T/CUMM (130-400); Red Blood Count 3.38 MC/CUMM (3.8-5.5); White Blood Count 7.6 T/CUMM (4-12)
[2019-01-31 04:36] LABS: Alanine Aminotransferase 47 U/L (16-61); Albumin 2.7 G/DL (3.4-5.0); Alkaline Phosphatase 91 U/L (45-117); Aspartate Amino Transferase 25 U/L (0-37); Bilirubin,Indirect 0.8 MG/DL (0.0-1.0); Blood Urea Nitrogen 23 MG/DL (7-18); Calcium 8.2 MG/DL (8.5-10.1); Estimated Glom Filtration Rate 96 ML/MIN; Glucose 108 MG/DL (74-106); Total Protein 6.2 G/DL (6.4-8.3)
[2019-01-31 04:39] LABS: Troponin I 0.172 NG/ML (0.00-0.045)
[2019-01-31] MEDS: POLYETHYLENE GLYCOL POWDER 17 GM PACK PO SCH (08:45)
[2019-01-31] MEDS: FERROUS SULFATE 325 MG TABLET PO SCH (08:45)
[2019-01-31] MEDS: MAGNESIUM CHLORIDE 64 MG TABLET PO SCH ×2 (08:46→20:20)
[2019-01-31] MEDS: ASCORBIC ACID 500 MG TABLET PO SCH ×2 (08:46→20:20)
[2019-01-31] MEDS: OMEGA 3 ACID ETHYL ESTERS 1 GM CAPSULE PO SCH (08:46)
[2019-01-31] MEDS: ASPIRIN EC 81 MG TABLET PO SCH (08:47)
[2019-01-31] MEDS: PANTOPRAZOLE 40 MG TABLET PO SCH (08:47)
[2019-01-31] MEDS: CHOLECALCIFEROL 1,000 UNIT TABLET PO SCH (08:47)
[2019-01-31] MEDS: SIMVASTATIN 10 MG TABLET PO SCH (08:47)
[2019-01-31] MEDS: CYANOCOBALAMIN 500 MCG TABLET PO SCH (08:47)
[2019-01-31] MEDS: DOCUSATE SODIUM 100 MG CAPSULE PO SCH (08:47)
[2019-01-31] MEDS: carvediloL 12.5 MG TABLET PO SCH ×2 (08:47→16:10)
[2019-01-31] MEDS: CHLORHEXIDINE 0.12% ORAL RINSE 60 ML BOTTLE SWISH/SPIT SCH ×2 (08:48→20:20)
[2019-01-31] MEDS: oxyCODONE/ACETAMINOPHEN 5-325 MG TABLET PO PRN ×2 (08:54→14:14)
[2019-01-31] MEDS ORDERED: LOSARTAN 50 MG TABLET PO SCH (09:00)
[2019-01-31] MEDS ORDERED: LOSARTAN 25 MG TABLET PO ONE (11:36)
[2019-01-31] MEDS ORDERED: FUROSEMIDE 40 MG TABLET PO ONE (12:07)
[2019-01-31] MEDS: HYDROmorphone 2 MG/1 ML VIAL IV PRN (20:08)
[2019-01-31] MEDS: ZALEPLON 5 MG CAPSULE PO PRN (20:10)
[2019-01-31] MEDS: MELOXICAM 7.5 MG TABLET PO SCH (20:20)
[2019-01-31] MEDS: SIMVASTATIN 20 MG TABLET PO SCH (20:20)
[2019-02-01] MEDS: oxyCODONE/ACETAMINOPHEN 5-325 MG TABLET PO PRN ×2 (05:40→20:25)
[2019-02-01 05:44] LABS: Basophils % 0.4 % (0.0-0.8); Eosinophils # 0.1 10*3/uL (0.0-0.87); Eosinophils % 1.8 % (0.00-10.9); Hematocrit 32.2 VOL% (42.0-52.0); Hemoglobin 10.7 GM/DL (14.0-18.0); Immature Granulocytes % 2.7 %; Immature Granulocytes Absolute 0.21 #; Lymphocytes # 1.2 10*3/uL (1.4-4.0); Mean Corpuscular HGB Conc 33.2 GM/DL (32-36); Mean Corpuscular Volume 92.3 FL (87-102); Mean Platelet Volume 10.3 FL (9.6-12.0); Monocytes % 11.5 % (1.7-12.7); Neutrophils % 67.6 % (38.7-73.9); Platelet Count 200 T/CUMM (130-400); Red Blood Count 3.49 MC/CUMM (3.8-5.5); Red Cell Distribution Width 13.1 % (9.3-17.3); White Blood Count 7.8 T/CUMM (4-12)
[2019-02-01 06:03] LABS: Alanine Aminotransferase 51 U/L (16-61); Albumin 2.9 G/DL (3.4-5.0); Alkaline Phosphatase 98 U/L (45-117); Aspartate Amino Transferase 27 U/L (0-37); Bilirubin,Indirect 0.5 MG/DL (0.0-1.0); Blood Urea Nitrogen 18 MG/DL (7-18); Calcium 8.4 MG/DL (8.5-10.1); Estimated Glom Filtration Rate 110 ML/MIN; Glucose 104 MG/DL (74-106); Osmolality,Calculated 278.5 MOS/KG (273-304); Total Protein 6.5 G/DL (6.4-8.3)
[2019-02-01 06:13] LABS: Troponin I 0.117 NG/ML (0.00-0.045)
[2019-02-01] MEDS: DOCUSATE SODIUM 100 MG CAPSULE PO SCH (08:53)
[2019-02-01] MEDS: ASPIRIN EC 81 MG TABLET PO SCH (08:53)
[2019-02-01] MEDS: CHOLECALCIFEROL 1,000 UNIT TABLET PO SCH (08:54)
[2019-02-01] MEDS: OMEGA 3 ACID ETHYL ESTERS 1 GM CAPSULE PO SCH (08:54)
[2019-02-01] MEDS: SIMVASTATIN 10 MG TABLET PO SCH (08:54)
[2019-02-01] MEDS: ASCORBIC ACID 500 MG TABLET PO SCH ×2 (08:54→20:25)
[2019-02-01] MEDS: MAGNESIUM CHLORIDE 64 MG TABLET PO SCH ×2 (08:54→20:25)
[2019-02-01] MEDS: LOSARTAN 50 MG TABLET PO SCH (08:54)
[2019-02-01] MEDS: carvediloL 12.5 MG TABLET PO SCH ×2 (08:54→16:30)
[2019-02-01] MEDS: PANTOPRAZOLE 40 MG TABLET PO SCH (08:55)
[2019-02-01] MEDS: FERROUS SULFATE 325 MG TABLET PO SCH (08:55)
[2019-02-01] MEDS: POLYETHYLENE GLYCOL POWDER 17 GM PACK PO SCH (08:55)
[2019-02-01] MEDS: CYANOCOBALAMIN 500 MCG TABLET PO SCH (08:55)
[2019-02-01] MEDS: CHLORHEXIDINE 0.12% ORAL RINSE 60 ML BOTTLE SWISH/SPIT SCH ×2 (08:58→20:28)
[2019-02-01] MEDS ORDERED: FUROSEMIDE 40 MG TABLET PO ONE (11:23)
[2019-02-01] MEDS: ZALEPLON 5 MG CAPSULE PO PRN (20:25)
[2019-02-01] MEDS: SIMVASTATIN 20 MG TABLET PO SCH (20:27)
[2019-02-01] MEDS: MELOXICAM 7.5 MG TABLET PO SCH (22:29)
[2019-02-02] MEDS: oxyCODONE/ACETAMINOPHEN 5-325 MG TABLET PO PRN (00:31)
[2019-02-02 04:33] LABS: Basophils % 0.4 % (0.0-0.8); Eosinophils # 0.2 10*3/uL (0.0-0.87); Eosinophils % 2.6 % (0.00-10.9); Hematocrit 33.8 VOL% (42.0-52.0); Immature Granulocytes % 2.1 %; Immature Granulocytes Absolute 0.19 #; Lymphocytes # 1.5 10*3/uL (1.4-4.0); Lymphocytes % 16.6 % (21.2-54.2); Mean Corpuscular HGB Conc 32.5 GM/DL (32-36); Mean Corpuscular Volume 93.4 FL (87-102); Mean Platelet Volume 10.1 FL (9.6-12.0); Neutrophils % 67.3 % (38.7-73.9); Platelet Count 210 T/CUMM (130-400); Red Blood Count 3.62 MC/CUMM (3.8-5.5); White Blood Count 9.1 T/CUMM (4-12)
[2019-02-02 05:11] LABS: Calcium 8.7 MG/DL (8.5-10.1); Osmolality,Calculated 277.7 MOS/KG (273-304)
[2019-02-02] MEDS: ASCORBIC ACID 500 MG TABLET PO SCH (09:50)
[2019-02-02] MEDS: CHOLECALCIFEROL 1,000 UNIT TABLET PO SCH (09:50)
[2019-02-02] MEDS: POLYETHYLENE GLYCOL POWDER 17 GM PACK PO SCH (09:50)
[2019-02-02] MEDS: MAGNESIUM CHLORIDE 64 MG TABLET PO SCH (09:51)
[2019-02-02] MEDS: FERROUS SULFATE 325 MG TABLET PO SCH (09:51)
[2019-02-02] MEDS: SIMVASTATIN 10 MG TABLET PO SCH (09:51)
[2019-02-02] MEDS: PANTOPRAZOLE 40 MG TABLET PO SCH (09:51)
[2019-02-02] MEDS: CYANOCOBALAMIN 500 MCG TABLET PO SCH (09:51)
[2019-02-02] MEDS: ASPIRIN EC 81 MG TABLET PO SCH (09:51)
[2019-02-02] MEDS: carvediloL 12.5 MG TABLET PO SCH (09:51)
[2019-02-02] MEDS: DOCUSATE SODIUM 100 MG CAPSULE PO SCH (09:51)
[2019-02-02] MEDS: LOSARTAN 50 MG TABLET PO SCH (09:51)
[2019-02-02] MEDS: OMEGA 3 ACID ETHYL ESTERS 1 GM CAPSULE PO SCH (09:51)
[2019-02-02] MEDS: CHLORHEXIDINE 0.12% ORAL RINSE 60 ML BOTTLE SWISH/SPIT SCH (11:00)
[2019-02-02] MEDS ORDERED: ALBUTEROL/IPRATROPIUM 3 ML NEB RESP TX ONE (11:12)
[2019-02-02 12:53] VITALS: BP 145/73
== END 2019-02-02 13:14 | disposition home health service (06) | DRG 234 ==
LOC: N.CL 08:46 → N.CVR 08:46 → N.CL 08:52 → N.TELEN 14:25 → N.CVR 01-26 07:32 → N.SDSINP 01-26 10:39 → N.TELES 01-27 10:11
PROVIDERS: ADMIT Internal Medicine Cardiovascular Disease; ATTEND Internal Medicine Cardiovascular Disease
PROC: CLCCHCL (ICD-10-PCS; 2019-01-25 12:15)

== ENCOUNTER 2020-09-01 12:12 | Inpatient (IN) ==
[2020-09-01 12:57] LABS: Basophils % 0.5 % (0.0-0.8); Eosinophils # 0.1 10*3/uL (0.0-0.87); Eosinophils % 1.1 % (0.00-10.9); Hematocrit 42.1 VOL% (42.0-52.0); Hemoglobin 13.9 GM/DL (14.0-18.0); Immature Granulocytes % 0.3 %; Immature Granulocytes Absolute 0.02 #; Lymphocytes # 1.3 10*3/uL (1.4-4.0); Lymphocytes % 17.2 % (21.2-54.2); Monocytes % 5.5 % (1.7-12.7); Neutrophils % 75.4 % (38.7-73.9); Platelet Count 177 T/CUMM (130-400); Red Blood Count 4.68 MC/CUMM (3.8-5.5); Red Cell Distribution Width 13.1 % (9.3-17.3); White Blood Count 7.5 T/CUMM (4-12)
[2020-09-01 13:07] LABS: PT Patient Result 11.3 SECS (9.8-11.9); Partial Thromboplastin Time 26.6 SECS (23.9-33.8)
[2020-09-01] MEDS ORDERED: MAGNESIUM SULF RIDER 2 GM/50 ML PREMIX IV PRN (13:15)
[2020-09-01] MEDS ORDERED: MAGNESIUM SULF RIDER 4 GM/100 ML PREMIX IV PRN (13:15)
[2020-09-01] MEDS ORDERED: ONDANSETRON 4 MG/2 ML VIAL IV PRN (13:15)
[2020-09-01] MEDS ORDERED: diphenhydrAMINE CAP 25 MG CAPSULE PO PRN (13:15)
[2020-09-01] MEDS ORDERED: ZALEPLON 5 MG CAPSULE PO PRN (13:15)
[2020-09-01 13:22] LABS: Alanine Aminotransferase 26 U/L (16-61); Albumin 3.9 G/DL (3.4-5.0); Alkaline Phosphatase 60 U/L (45-117); Aspartate Amino Transferase 25 U/L (0-37); Blood Urea Nitrogen 14 MG/DL (7-18); Calcium 8.8 MG/DL (8.5-10.1); Carbon Dioxide 26 MMOL/L (21-32); Estimated Glom Filtration Rate 92 ML/MIN; Glucose 168 MG/DL (74-106); Osmolality,Calculated 277.8 MOS/KG (273-304); Potassium 3.6 MMOL/L (3.5-5.1); Sodium 137 MMOL/L (136-145); Total Protein 7.2 G/DL (6.4-8.2)
[2020-09-01 13:59] LABS: Barbiturates Screen,Urine Negative (Negative); Benzodiazepines Screen,Urine Negative (Negative); Cannabinoid Screen,Urine Negative (Negative); Opiate Screen,Urine Negative (Negative); Phencyclidine Screen,Urine Negative (Negative)
[2020-09-01 14:02] LABS: Bacteria,Urine Occasional /HPF (Few); Bilirubin,Urine Negative (Negative); Blood, Urine Negative (Negative); Glucose,Urine (UA) Negative (Negative); Ketones,Urine Negative (Negative); Nitrite,Urine Negative (Negative); Protein,Urine Negative; RBC,Urine 2 /HPF (0-4); Urine Appearance CLEAR (Clear); Urine Color Straw (Yellow); Urine Specific Gravity 1.004 (1.001-1.035); Urine Urobilinogen < 2.0 EU/DL (0.2-1.0); WBC,Urine 3 /HPF (0-6)
[2020-09-01] MEDS ORDERED: MECLIZINE 25 MG TABLET PO PRN (14:24)
[2020-09-01] MEDS ORDERED: NITROGLYCERIN SL 0.4 MG TABLET SL PRN (14:24)
[2020-09-01] MEDS ORDERED: traMADol 50 MG TABLET PO PRN (14:24)
[2020-09-01] MEDS ORDERED: CLOPIDOGREL 75 MG TABLET PO STA (14:25)
[2020-09-01] MEDS ORDERED: CLOPIDOGREL 75 MG TABLET ONE (14:32)
[2020-09-01] MEDS ORDERED: hydrALAZINE 20 MG/1 ML VIAL IV PRN (15:05)
[2020-09-01] MEDS: HEPARIN DRIP 25,000 UNITS/500 ML PREMIX IV SCH (22:23)
[2020-09-01] MEDS: FUROSEMIDE 20 MG TABLET PO SCH (22:24)
[2020-09-01] MEDS: PREGABALIN 50 MG CAPSULE PO SCH (22:24)
[2020-09-02 05:15] LABS: Basophils % 0.5 % (0.0-0.8); Eosinophils # 0.2 10*3/uL (0.0-0.87); Eosinophils % 1.9 % (0.00-10.9); Hematocrit 40.8 VOL% (42.0-52.0); Hemoglobin 13.3 GM/DL (14.0-18.0); Immature Granulocytes % 0.4 %; Immature Granulocytes Absolute 0.03 #; Lymphocytes % 25.4 % (21.2-54.2); Mean Corpuscular HGB Conc 32.6 GM/DL (32-36); Mean Corpuscular Volume 91.5 FL (87-102); Mean Platelet Volume 10.1 FL (9.6-12.0); Monocytes % 8.5 % (1.7-12.7); Neutrophils % 63.3 % (38.7-73.9); Platelet Count 168 T/CUMM (130-400); Red Blood Count 4.46 MC/CUMM (3.8-5.5); Red Cell Distribution Width 13.1 % (9.3-17.3); White Blood Count 7.8 T/CUMM (4-12)
[2020-09-02 05:30] LABS: Calcium 8.9 MG/DL (8.5-10.1); Osmolality,Calculated 279.4 MOS/KG (273-304); Potassium 3.9 MMOL/L (3.5-5.1)
[2020-09-02 05:35] LABS: Albumin 3.4 G/DL (3.4-5.0); Bilirubin,Total 1.2 MG/DL (0.2-1.0); Osmolality,Calculated 277.5 MOS/KG (273-304); Potassium 3.9 MMOL/L (3.5-5.1); Total Protein 6.8 G/DL (6.4-8.2)
[2020-09-02] MEDS ORDERED: ROSUVASTATIN 20 MG TABLET PO SCH (09:00)
[2020-09-02] MEDS ORDERED: CLOPIDOGREL 75 MG TABLET PO SCH (09:00)
[2020-09-02] MEDS: CO Q PO SCH (09:08)
[2020-09-02] MEDS: CINNAMON PO SCH (09:08)
[2020-09-02] MEDS: MELOXICAM 7.5 MG TABLET PO SCH (09:14)
[2020-09-02] MEDS: OLMESARTAN 20 MG TABLET PO SCH (09:14)
[2020-09-02] MEDS: OMEGA 3 ACID ETHYL ESTERS 1 GM CAPSULE PO SCH (09:15)
[2020-09-02] MEDS: ASPIRIN EC 81 MG TABLET PO SCH (09:15)
[2020-09-02] MEDS: MAGNESIUM CHLORIDE 64 MG TABLET PO SCH (09:15)
[2020-09-02] MEDS: CHOLECALCIFEROL 5,000 UNIT TABLET PO SCH (09:15)
[2020-09-02] MEDS: FUROSEMIDE 20 MG TABLET PO SCH ×2 (09:15→21:24)
[2020-09-02] MEDS: PANTOPRAZOLE 40 MG TABLET PO SCH (09:16)
[2020-09-02] MEDS: CYANOCOBALAMIN 500 MCG TABLET PO SCH (09:16)
[2020-09-02] MEDS: PREGABALIN 25 MG CAPSULE PO SCH ×2 (10:16→21:24)
[2020-09-02] MEDS: PREGABALIN 50 MG CAPSULE PO SCH (10:35)
[2020-09-02] MEDS: HEPARIN DRIP 25,000 UNITS/500 ML PREMIX IV SCH ×2 (16:35→18:39)
[2020-09-03 05:40] LABS: Basophils # 0.1 10*3/uL (0.0-0.2); Basophils % 0.6 % (0.0-0.8); Eosinophils # 0.2 10*3/uL (0.0-0.87); Eosinophils % 2.3 % (0.00-10.9); Hematocrit 40.9 VOL% (42.0-52.0); Hemoglobin 13.5 GM/DL (14.0-18.0); Immature Granulocytes % 0.5 %; Immature Granulocytes Absolute 0.04 #; Lymphocytes # 2.2 10*3/uL (1.4-4.0); Lymphocytes % 25.5 % (21.2-54.2); Mean Corpuscular Volume 90.5 FL (87-102); Mean Platelet Volume 10.6 FL (9.6-12.0); Monocytes % 8.2 % (1.7-12.7); Neutrophils % 62.9 % (38.7-73.9); Platelet Count 175 T/CUMM (130-400); Red Blood Count 4.52 MC/CUMM (3.8-5.5); Red Cell Distribution Width 13.2 % (9.3-17.3); White Blood Count 8.5 T/CUMM (4-12)
[2020-09-03 05:59] LABS: Calcium 9.2 MG/DL (8.5-10.1); Potassium 3.9 MMOL/L (3.5-5.1)
[2020-09-03] MEDS: MAGNESIUM CHLORIDE 64 MG TABLET PO SCH (08:57)
[2020-09-03] MEDS: OMEGA 3 ACID ETHYL ESTERS 1 GM CAPSULE PO SCH (08:57)
[2020-09-03] MEDS: PANTOPRAZOLE 40 MG TABLET PO SCH (08:57)
[2020-09-03] MEDS: FUROSEMIDE 20 MG TABLET PO SCH (08:57)
[2020-09-03] MEDS: CYANOCOBALAMIN 500 MCG TABLET PO SCH (08:57)
[2020-09-03] MEDS: MELOXICAM 7.5 MG TABLET PO SCH (08:58)
[2020-09-03] MEDS: OLMESARTAN 20 MG TABLET PO SCH (08:58)
[2020-09-03] MEDS: PREGABALIN 25 MG CAPSULE PO SCH (08:59)
[2020-09-03] MEDS: ASPIRIN EC 81 MG TABLET PO SCH (08:59)
[2020-09-03] MEDS: CHOLECALCIFEROL 5,000 UNIT TABLET PO SCH (08:59)
[2020-09-03] MEDS ORDERED: ROSUVASTATIN 20 MG TABLET PO SCH (09:00)
[2020-09-03] MEDS: CINNAMON PO SCH (09:13)
[2020-09-03] MEDS: CO Q PO SCH (09:13)
[2020-09-03] MEDS: HEPARIN DRIP 25,000 UNITS/500 ML PREMIX IV SCH (09:39)
[2020-09-03 16:14] VITALS: BP 164/57
[2020-09-03] MEDS ORDERED: carvediloL 6.25 MG TABLET PO SCH (21:00)
[2020-09-03] MEDS ORDERED: APIXABAN 5 MG TABLET PO SCH (21:00)
== END 2020-09-03 17:39 | disposition home or self-care (01) | DRG 93 ==
LOC: N.ED 12:12 → N.EDINP 12:12 → N.TELES 16:56
PROVIDERS: ADMIT Internal Medicine Cardiovascular Disease; ATTEND Internal Medicine Cardiovascular Disease